=== PATIENT | male | born 1940 ===

== ENCOUNTER 2016-10-12 14:55 | Inpatient (IN) | payer MEDICARE, MEDICAID ==
[2016-10-12] MEDS ORDERED: Albuterol/Ipratropium NEB.SOL* Albuterol 2.5 MG/Ipratropium 0.5 MG 3 ML INH PRN (15:14)
--- NOTE | 2016-10-12 15:45 | RAD ---
Indication: Shortness of breath. COPD. Megacolon. Clinical concern for potential aspiration pneumonia. Comparison: March 17, 2012 abdomen radiographs and March 11, 2012 CT abdomen. Technique: Upright AP 1515 hours Report: Severe gas distention of the abdomen similar to the prior exam. Associated elevation of the hemidiaphragms and partial atelectasis of both lungs with crowding of the pulmonary markings. Grossly clear pleural spaces. Skinfold parallels the RIGHT peripheral thoracic wall. Negative for pneumothorax. Negative for cardiomegaly. Grossly unremarkable central pulmonary vasculature accounting for low lung volumes. IMPRESSION: Markedly low lung volumes with atelectasis secondary to elevation of the hemidiaphragms due to severe gas distention of the bowel. No compelling evidence for aspiration pneumonia. The gas distention of the bowel appears chronic or recurrent for this patient.
[2016-10-12] MEDS ORDERED: Zosyn per Pharmacy* NOTE FOLLOW UP SCH (16:00)
[2016-10-12] MEDS: NS 0.9% 1000 ML* 1,000 ML IV SCH (16:24)
[2016-10-12] MEDS: Enoxaparin(*) 40 MG/0.4 ML SYR SUBCUT SCH (16:52)
[2016-10-12] MEDS: CMC:Lactase Enzyme (NF) 3,000 UNIT TAB PO SCH (16:52)
[2016-10-12] MEDS: ZOSYN 3.375 GM Q8H per EXTENDED INFUSION IVPB SCH ×2 (20:15)
[2016-10-12] MEDS: Potassium Chlor TAB* 20 MEQ TAB.ER PO SCH (20:46)
[2016-10-12] MEDS: Divalproex ER TAB(*) 500 MG PO SCH (20:46)
[2016-10-12] MEDS: Metoclopramide TAB* 10 MG PO SCH (20:46)
[2016-10-12] MEDS: chlorproMAZINE TAB* 10 MG PO SCH (20:47)
[2016-10-12] MEDS: Polyethylene Glycol 3350* 17 GM PACKET PO SCH (20:50)
[2016-10-12] MEDS ORDERED: Lubiprostone 24 MCG CAP (NF) PO SCH (21:00)
--- NOTE | 2016-10-13 01:23 | HP ---
HISTORY AND PHYSICAL: DATE OF ADMISSION: 10/12/16 PRIMARY CARE PHYSICIAN: Sterling Hsieh PA-C. CHIEF COMPLAINT: Possible pneumonia with increasing shortness of breath according to staff from [facility] ([facility]). HISTORY OF PRESENT ILLNESS: Mr. Rico is a developmentally disabled 76- year- old gentleman, resident of [facility], with a history of severe mental disability , inability to communicate, who was noticed to be more short of breath and warm with increased redness of his face than normal. He was noted to have some "gurgling sounds" in his throat, noticed after dinner last night (10/11/16). The patient has had difficulty swallowing and has had been on a pureed diet with thickened fluids. The patient's temperature was measured at 100.2 degrees Fahrenheit after dinner and was gradually more short of breath by observation. The patient had no subjective complaints and is usually not communicative in that way. The patient came to emergency room the morning of 10/12/16 and was noticed to have a right-sided pneumonic infiltrates as per the ED provider. There were increased secretions noted and the patient was being admitted to the intensive care unit. The patient was transferred to [facility] and I accepted the case on the concern by the medical staff at [place] that he may make a turn for the worse and there would be limited ventilatory management capabilities over the weekend. The patient is indeed a full code. He is accompanied by his [facility] staff. There is a very clear medical history in the records and with the documentation carried by his team. He is being admitted to the ICU for initial management of aspiration pneumonia. PAST MEDICAL HISTORY: 1. Mental retardation. 2. Actinic keratosis. 3. Cholelithiasis. 4. Hyperlipidemia. 5. Epilepsy. 6. Prostatic hypertrophy. 7. Hypokalemia. 8. Hyponatremia. 9. Hypothyroidism. 10. Hypoxemia. 11. Impulse control disorder. 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 13. Periodontal disease. 14. [place] syndrome. 15. History of congestive heart failure. OUTPATIENT MEDICATIONS: 1. Tylenol 650 mg by mouth q.4 hours p.r.n. pain/fever. 2. Aloe vera apply locally as needed. 3. Amitiza 24 mcg per capsule - 1 capsule twice daily. 4. Chlorpromazine (Thorazine) 10 mg in the morning and 20 mg in the evening. 5. Divalproex (Depakote ER) 500 mg per mouth twice daily and an extra 250 mg in the morning for a total of 750 mg in the morning. 6. Doxycycline 200 mg by mouth twice daily. 7. Flomax 0.4 mg by mouth daily. 8. Risperdal 0.5 mg by mouth at bedtime. 9. Sertraline 200 mg by mouth daily. 10. Vitamin B12 1000 mcg by mouth daily. 11. Lactaid 9000 units by mouth 3 times daily with meals. 12. Levothyroxine 88 mcg by mouth daily. 13. Metronidazole gel apply as directed to affected areas. 14. MiraLAX 17 g twice daily. 15. Potassium 20 mEq by mouth 3 times daily. 16. Proscar 5 mg by mouth daily. 17. Reglan 10 mg by mouth 3 times daily. ALLERGIES: Only to environmental sources - no medication allergies noted. FAMILY HISTORY: Noncontributory, though reviewed. SOCIAL HISTORY: The patient is a nonsmoker, no alcohol ingested. Generally wheelchair bound, ambulates only short distances with pivots. REVIEW OF SYSTEMS: No review of systems was able to be completed secondary to the patient's chronic inability to cooperate with this questioning. PHYSICAL EXAMINATION GENERAL APPEARANCE: Elderly man, appears older than stated age, in no apparent distress. He is sitting upwards. He tracks me with his eyes, but is not meaningfully communicative or respond to questions. He does withdraw to pain, localize his pain. VITAL SIGNS: On admission, temperature 101.0 degrees Fahrenheit, pulse 97 and regular, respirations 25 and unlabored at this time, oxygen saturation 94% on Vapotherm 40%, blood pressure 150/80. HEENT: Oropharynx is clear. Mucous membranes are moist. No posterior pharyngeal erythema or exudate. NECK: Supple. No elevated JVD. CHEST: Clear breath sounds anteriorly, but some rhonchorous sounds on the right posteriorly. ABDOMEN: Massively distended and tympanic consistent with previous descriptions of his abdomen with noted megacolon/Alan syndrome. SKIN: Dry and intact. No rashes, lesions, or breakdown except in his sacral area with some stage 1 sacral changes, which the nurses have noted and are following. EXTREMITIES: Without clubbing, cyanosis, or edema. Yeung catheter to gravity is in place and draining clear yellow fluid. Peripheral IV is also in place. DIAGNOSTIC STUDIES/LAB DATA: Admission data is pending at this time, but I did review labs from the [place] [facility], which includes a white blood cell count of 12.07, hemoglobin 20.3 with hematocrit of 59, and platelets 178. Sodium 139, potassium 3.6 (low), chloride 102, bicarbonate 25, BUN 16, creatinine 0.9, lactic acid 2. INR is 1.6 (not on anticoagulation - auto- anticoagulated). Urine pending. EKG: Normal sinus rhythm. Chest x-ray by report showed a right upper lobe pneumonic infiltrate with elevated right and left hemidiaphragms with low lung volumes. ASSESSMENT AND PLAN: Mr. Rico is a 76-year-old gentleman with a presumably right-sided pneumonia with modestly elevated white blood cell count, hemoconcentrated with a hemoglobin of 20 with unclear baseline, but recheck pending as well as right-sided infiltrates altogether consistent with pneumonia , especially with his increased secretions and tachypnea. PLAN BY MEDICAL PROBLEM: Aspiration pneumonia with increased oral secretions and chronic difficulty swallowing. Pneumonitis can occur actual bacterial alveolar infiltration - supportive care is in place with supplemental oxygen and DuoNebs. We will collect the sputum culture. Empiric antibiotics with IV Zosyn for oral aerobic and anaerobic coverage. Blood cultures are being recollected here. Note, the patient received ceftriaxone, azithromycin in the emergency room at [place]. We will observe the patient closely for clinical stability before moving to the medical floor if he has a good night tonight. Seizure disorder - continue divalproex acid regimen. Behavioral disorder - continue sertraline as well as Risperdal as well as chlorpromazine regimen as per outpatient regimen. Benign prostatic hypertrophy - continue Amitiza, Flomax, and Proscar. Chronic hypokalemia - continue potassium supplementation 3 times daily as per outpatient regimen. Hypothyroidism - continue levothyroxine 88 mcg daily as per outpatient regimen. Check TSH. Full code. Thickened nectar thin liquids and pureed diet as per outpatient regimen with bedside swallow evaluation requested by nursing staff and Speech Therapy in the near future. TIME SPENT: Total time taken to admit Mr. Rico was 75 minutes, greater than half that time spent at the bedside going over the history and physical with the patient as well as his staff members from [facility]. [id number]/CPS #: [id number] TAMIKO
[2016-10-13] MEDS: ZOSYN 3.375 GM Q8H per EXTENDED INFUSION IVPB SCH ×6 (03:52→20:15)
[2016-10-13] MEDS: Levothyroxine TAB* 88 MCG TAB PO SCH (05:54)
[2016-10-13 06:01] LABS: Hematocrit 54 % (42-52); Hemoglobin 17.7 g/dl (14.0-18.0); Mean Corpuscular HGB Conc 33 g/dl (31-36); Mean Corpuscular Hemoglobin 30 pg (27-31); Mean Corpuscular Volume 91 fL (80-94); Mean Platelet Volume 9 um3 (7.4-10.4); Red Blood Count 5.96 10^6/ul (4.0-5.4); Red Cell Distribution Width 18 % (10.5-15); White Blood Count 10.7 10^3/ul (3.5-10.8)
[2016-10-13] MEDS: NS 0.9% 1000 ML* 1,000 ML IV SCH (06:02)
[2016-10-13 06:20] LABS: Albumin 3.1 g/dL (3.2-5.2); BUN/Creatinine Ratio 27.7 (8-20); Calcium 8.5 mg/dL (8.6-10.3); EGFR African American 154.4 (>60); EGFR Non-African American 120.1 (>60); Globulin 2.8 g/dL (2-4); Total Bilirubin 1.2 mg/dL (0.2-1.0); Total Protein 5.9 g/dL (6.4-8.9)
[2016-10-13 06:42] LABS: Potassium 3.1 mmol/L (3.5-5.0)
[2016-10-13 06:55] LABS: TSH (Thyroid Stimulating Horm) 2.6 mcIU/mL (0.34-5.60)
[2016-10-13] MEDS: CMC:Lactase Enzyme (NF) 3,000 UNIT TAB PO SCH ×3 (09:23→17:20)
[2016-10-13] MEDS: Polyethylene Glycol 3350* 17 GM PACKET PO SCH ×2 (09:23→21:07)
[2016-10-13] MEDS: Metoclopramide TAB* 10 MG PO SCH ×3 (09:23→21:07)
[2016-10-13] MEDS: Finasteride TAB* 5 MG PO SCH (09:23)
[2016-10-13] MEDS: Tamsulosin CAP* 0.4 MG PO SCH (09:23)
[2016-10-13] MEDS: Sertraline* 100 MG TAB PO SCH (09:23)
[2016-10-13] MEDS: Potassium Chlor TAB* 20 MEQ TAB.ER PO SCH ×3 (09:23→21:07)
[2016-10-13] MEDS: chlorproMAZINE TAB* 10 MG PO SCH ×2 (09:23→21:06)
[2016-10-13] MEDS: Divalproex ER TAB(*) 500 MG PO SCH ×2 (09:23→21:06)
[2016-10-13] MEDS: Divalproex ER TAB(*) 250 MG PO SCH (09:24)
--- NOTE | 2016-10-13 11:00 | PN ---
Progress Note - Progress Note Date of Service: 10/13/16 Note: CRITICAL CARE MEDICINE Date: 10/13/16 Time: 1010 SUBJECTIVE: Patient seen and examined. PHYSICAL EXAM: Vital Signs: Reviewed. Neurologic: awake HEENT: pupils equal. Sclera anicteric. Trachea midline. Supraclavicular wasting Cardiovascular: S1 S2 distant Respiratory: dec bs with rhonchi b/l, no rales. Abdomen: Soft, distended, tympanititc; nt. Extremities: Warm. frail Access: piv, leon LABS: Reviewed. IMAGING: Reviewed. MEDICATIONS: Reviewed. ASSESSMENT: 76 M with h/o MR from [facility] presenting with acute aspiration pneumonitits leading to acute hypoxic respiratory failure. PLAN: Neurologic: chronic aed regimen. Cardiovascular: perfusign. vol status fine. no need for further ivf. Respiratory: on HFO2 post pneumonitis. wean down and off today. needs to vedntilate in order to foster lung recover. chronic low volumes and likely scarring atelectasis. allow him to thive. metaneb if short on ventilation. Gastrointestinal: po diet as ordered. speech can f/u officially Renal/Metabolic: stable, replete K, f/u lytes. Infectious Disease: on zosyn. f/u finalization of cx. given his dynamics may recieve a 5 day total course. Hematology: stable. lovenox Endocrine: stable. Musculoskeletal: oob as able. Psych/Social: oupt rx. Supportive and preventative care as ordered. SUP: po VTE prophylaxis: lovenox Leon catheter given critical illness, monitoring needs for accurate assessment of HANS and KDIGO criteria for critically ill patients and to avoid potential harms of urinary retention, skin breakdown/ulcers. Disposition: ICU today sec to HFO2 needs Code Status: Full Critical Care Time: 30min Sheree Espinoza DO
[2016-10-13] MEDS: KCL 10 MEQ/50 ML IVPREMIX* 10 MEQ/50 ML BAG IV SCH ×3 (12:29→15:33)
[2016-10-13] MEDS: Enoxaparin(*) 40 MG/0.4 ML SYR SUBCUT SCH (17:20)
[2016-10-13] MEDS: Acetaminophen TAB* 325 MG PO PRN (17:20)
[2016-10-14] MEDS: ZOSYN 3.375 GM Q8H per EXTENDED INFUSION IVPB SCH ×2 (04:19)
[2016-10-14] MEDS: Levothyroxine TAB* 88 MCG TAB PO SCH (06:29)
[2016-10-14 06:38] LABS: Hematocrit 52 % (42-52); Hemoglobin 16.9 g/dl (14.0-18.0); Mean Corpuscular HGB Conc 33 g/dl (31-36); Mean Corpuscular Hemoglobin 29 pg (27-31); Mean Corpuscular Volume 90 fL (80-94); Mean Platelet Volume 9 um3 (7.4-10.4); Red Blood Count 5.76 10^6/ul (4.0-5.4); Red Cell Distribution Width 18 % (10.5-15); White Blood Count 9.7 10^3/ul (3.5-10.8)
[2016-10-14 06:47] LABS: BUN/Creatinine Ratio 30.2 (8-20); Calcium 8.4 mg/dL (8.6-10.3); EGFR African American 195.4 (>60); Magnesium 1.6 mg/dL (1.9-2.7); Phosphorus 2.5 mg/dL (2.5-5.0); Potassium 3.3 mmol/L (3.5-5.0)
[2016-10-14] MEDS: Tamsulosin CAP* 0.4 MG PO SCH (09:28)
[2016-10-14] MEDS: Potassium Chlor TAB* 20 MEQ TAB.ER PO SCH ×3 (09:28→19:47)
[2016-10-14] MEDS: Divalproex ER TAB(*) 500 MG PO SCH ×2 (09:28→19:47)
[2016-10-14] MEDS: Finasteride TAB* 5 MG PO SCH (09:28)
[2016-10-14] MEDS: Sertraline* 100 MG TAB PO SCH (09:29)
[2016-10-14] MEDS: Divalproex ER TAB(*) 250 MG PO SCH (09:29)
[2016-10-14] MEDS: CMC:Lactase Enzyme (NF) 3,000 UNIT TAB PO SCH ×3 (09:29→17:30)
[2016-10-14] MEDS: chlorproMAZINE TAB* 10 MG PO SCH ×2 (09:29→19:46)
[2016-10-14] MEDS: Metoclopramide TAB* 10 MG PO SCH ×3 (09:29→19:46)
[2016-10-14] MEDS: Polyethylene Glycol 3350* 17 GM PACKET PO SCH ×2 (09:29→19:44)
[2016-10-14] MEDS ORDERED: Magnesium Sulf 4 GM/100 ML IV* 4,000 MG/100 ML BAG IVPB ONE (10:20)
--- NOTE | 2016-10-14 11:10 | PN ---
Progress Note - Progress Note Date of Service: 10/14/16 Note: CRITICAL CARE MEDICINE Date: 10/14/16 Time: 935 SUBJECTIVE: Patient seen and examined. PHYSICAL EXAM: Vital Signs: Reviewed. Neurologic: awake HEENT: pupils equal. Sclera anicteric. Trachea midline. Supraclavicular wasting Cardiovascular: S1 S2 distant Respiratory: dec bs with rhonchi b/l, no rales. Abdomen: Soft, chronic distention, tympanititc; nt. Extremities: Warm. frail Access: piv, leon LABS: Reviewed. IMAGING: Reviewed. MEDICATIONS: Reviewed. ASSESSMENT: 76 M with h/o MR from [facility] presenting with acute aspiration pneumonitits leading to acute hypoxic respiratory failure; MR &chronic ol[place]' s syndrome. PLAN: doing well. wean off HFo2. dc abx; no needed for his aspiration replace lytes dc leon oob. po intake. social work f/u gabriel for dc plan Supportive and preventative care as ordered. SUP: po VTE prophylaxis: lovenox Disposition: to floor later today Code Status: Full Critical Care Time: 25min Sheree Espinoza DO
[2016-10-14] MEDS: KCL 10 MEQ/50 ML IVPREMIX* 10 MEQ/50 ML BAG IV SCH ×3 (11:48→13:39)
[2016-10-14] MEDS: Enoxaparin(*) 40 MG/0.4 ML SYR SUBCUT SCH (17:34)
[2016-10-15] MEDS: Levothyroxine TAB* 88 MCG TAB PO SCH (05:04)
[2016-10-15] MEDS: CMC:Lactase Enzyme (NF) 3,000 UNIT TAB PO SCH ×3 (08:08→17:24)
[2016-10-15] MEDS: Polyethylene Glycol 3350* 17 GM PACKET PO SCH ×2 (08:08→20:37)
[2016-10-15] MEDS: chlorproMAZINE TAB* 10 MG PO SCH ×2 (08:08→20:38)
[2016-10-15] MEDS: Sertraline* 100 MG TAB PO SCH (08:09)
[2016-10-15] MEDS: Tamsulosin CAP* 0.4 MG PO SCH (08:09)
[2016-10-15] MEDS: Divalproex ER TAB(*) 250 MG PO SCH (08:09)
[2016-10-15] MEDS: Metoclopramide TAB* 10 MG PO SCH ×3 (08:09→20:39)
[2016-10-15] MEDS: Divalproex ER TAB(*) 500 MG PO SCH ×2 (08:09→20:39)
[2016-10-15] MEDS: Potassium Chlor TAB* 20 MEQ TAB.ER PO SCH ×3 (08:09→20:39)
[2016-10-15] MEDS: Finasteride TAB* 5 MG PO SCH (08:09)
--- NOTE | 2016-10-15 13:02 | PN ---
Subjective Date of Service: 10/15/16 Interval History: Patient seen this afternoon with nursing at bedside. Seems comfortable, he is non-verbal. Seems to be tolerating PO alright. HEAD OF ETHICS AND COMPLIANCE brandi done today. Patient on nocturnal O2 only at [facility] [place], currently on 4L. Family History: Unchanged from Admission Social History: Unchanged from Admission Past Medical History: Unchanged from Admission Objective Active Medications: Acetaminophen (Tylenol Tab*) 650 mg PO Q4H PRN Albuterol/Ipratropium (Duoneb (Albuterol 2.5 Mg/Ipratropium 0.5 Mg)) 1 neb INH Q4H PRN Chlorpromazine HCl (Thorazine Tab*) 10 mg PO QAM [facility] Chlorpromazine HCl (Thorazine Tab*) 20 mg PO BEDTIME [facility] Divalproex Sodium (Depakote Er Tab(*)) 250 mg PO DAILY [facility] Divalproex Sodium (Depakote Er Tab(*)) 500 mg PO BID [facility] Enoxaparin Sodium (Lovenox(*)) 40 mg SUBCUT Q24H [facility] Finasteride (Proscar Tab*) 5 mg PO DAILY [facility] Lactase (Lactaid Fast Act (Nf)) 9,000 unit PO TID WITH MEALS [facility] Levothyroxine Sodium (Synthroid Tab*) 88 mcg PO 0600 [facility] Lubiprostone (Amitiza (Nf)) 24 mcg PO BID [facility] Metoclopramide HCl (Reglan Tab*) 10 mg PO TID [facility] Ondansetron HCl (Zofran Inj*) 4 mg IV Q4H PRN Polyethylene Glycol/Electrolytes (Miralax*) 17 gm PO BID [facility] Potassium Chloride (Klor Con Er Tab*) 20 meq PO TID [facility] Risperidone (Risperdal) 0.5 mg PO BEDTIME [facility] Sertraline HCl (Zoloft*) 200 mg PO DAILY [facility] Tamsulosin HCl (Flomax Cap*) 0.4 mg PO DAILY [facility] Vital Signs 10/14/16 10/14/16 10/14/16 13:15 13:30 13:45 Temperature Pulse Rate 92 99 94 Respiratory 15 22 20 Rate Blood Pressure (mmHg) O2 Sat by Pulse 94 95 97 Oximetry 10/15/16 10/15/16 08:00 11:49 Temperature 97.3 F Pulse Rate 65 Respiratory 20 16 Rate Blood Pressure 122/68 (mmHg) O2 Sat by Pulse 98 Oximetry Oxygen Devices in Use Now: Nasal Cannula - 4L Appearance: Elderly, M, sitting in chair in NAD Eyes: No Scleral Icterus Ears/Nose/Mouth/Throat: Mucous Membranes Moist Neck: NL Appearance and Movements; NL JVP Respiratory: Symmetrical Chest Expansion and Respiratory Effort, - - mild scattered ronchi Cardiovascular: NL Sounds; No Murmurs; No JVD, RRR Abdominal: - - Soft, distended, tympanitic, non-tender Lymphatic: No Cervical Adenopathy Extremities: No Edema Skin: No Rash or Ulcers Neurological: - - Alert, non-verbal Result Diagrams: 10/14/16 05:51 10/14/16 05:51 Microbiology and Other Data: Microbiology 10/12/16 17:05 Aerobic Blood Culture - Preliminary Blood Venous No Growth Day 2 Anaerobic Blood Culture - Preliminary No Growth Day 2 Blood Culture - Final 10/12/16 16:35 Aerobic Blood Culture - Preliminary Blood Venous No Growth Day 2 Anaerobic Blood Culture - Preliminary No Growth Day 2 Blood Culture - Final 10/12/16 15:03 Nasal Screen MRSA (PCR)(SANGEETA) - Final Nasal Mrsa Negative Assess/Plan/Problems-Billing Assessment: Acute hypoxic respiratory failure 2/2 aspiration pneumonitis in a 76 yo M with hx of developmental delay, chronic abdominal distension/[place]'s, BPH, HLD, seizure disorder - Patient Problems (1) Acute respiratory failure with hypoxia Current Visit: Yes Comment: 2/2 aspiration pneumonitis. ABx stopped. Continue supportive care, supplemental O2. Wean as able, currently on 4L. HEAD OF ETHICS AND COMPLIANCE eval today. (2) BPH (benign prostatic hyperplasia) Current Visit: Yes Comment: Continue flomax and proscar (3) Seizure disorder Current Visit: Yes Comment: Continue depakote (4) DVT prophylaxis Current Visit: Yes Comment: Lovenox Status and Disposition: Probable discharge in 24-48 hours
[2016-10-15] MEDS: Enoxaparin(*) 40 MG/0.4 ML SYR SUBCUT SCH (15:16)
[2016-10-15] MEDS: Acetaminophen TAB* 325 MG PO PRN (20:38)
[2016-10-16] MEDS: Ondansetron INJ* 2 MG/ML VIAL IV PRN (05:12)
[2016-10-16] MEDS: Acetaminophen TAB* 325 MG PO PRN (05:12)
[2016-10-16] MEDS: Levothyroxine TAB* 88 MCG TAB PO SCH (05:12)
[2016-10-16 06:02] LABS: BUN/Creatinine Ratio 19.1 (8-20); Calcium 8.6 mg/dL (8.6-10.3); EGFR African American 224.5 (>60); EGFR Non-African American 174.6 (>60); Magnesium 1.6 mg/dL (1.9-2.7); Potassium 3.7 mmol/L (3.5-5.0)
[2016-10-16] MEDS: Finasteride TAB* 5 MG PO SCH (08:52)
[2016-10-16] MEDS: Sertraline* 100 MG TAB PO SCH (08:52)
[2016-10-16] MEDS: Metoclopramide TAB* 10 MG PO SCH ×3 (08:52→22:12)
[2016-10-16] MEDS: Potassium Chlor TAB* 20 MEQ TAB.ER PO SCH ×3 (08:52→22:12)
[2016-10-16] MEDS: chlorproMAZINE TAB* 10 MG PO SCH ×2 (08:52→22:11)
[2016-10-16] MEDS: CMC:Lactase Enzyme (NF) 3,000 UNIT TAB PO SCH ×3 (08:52→17:08)
[2016-10-16] MEDS: Polyethylene Glycol 3350* 17 GM PACKET PO SCH ×2 (08:53→22:11)
[2016-10-16] MEDS: Tamsulosin CAP* 0.4 MG PO SCH (08:53)
[2016-10-16] MEDS: Divalproex ER TAB(*) 250 MG PO SCH (08:53)
[2016-10-16] MEDS: Divalproex ER TAB(*) 500 MG PO SCH ×2 (08:53→22:11)
[2016-10-16] MEDS: Enoxaparin(*) 40 MG/0.4 ML SYR SUBCUT SCH (17:08)
--- NOTE | 2016-10-16 19:01 | PN ---
Subjective Date of Service: 10/16/16 Interval History: . Examined patient at bedside; Discussed case with Dr. Nieves ; Reviewed previous notes and radiology results; Patient seems comfortable; he is non-verbal. Seems to be tolerating PO alright. Patient on nocturnal O2 only at [facility], currently on 4L. . Family History: Unchanged from Admission Social History: Unchanged from Admission Past Medical History: Unchanged from Admission Objective Active Medications: . Acetaminophen (Tylenol Tab*) 650 mg PO Q4H PRN PRN Reason: FEVER/PAIN Last Admin: 10/16/16 05:12 Dose: 650 mg Albuterol/Ipratropium (Duoneb (Albuterol 2.5 Mg/Ipratropium 0.5 Mg)) 1 neb INH Q4H PRN PRN Reason: SOB/WHEEZING Chlorpromazine HCl (Thorazine Tab*) 10 mg PO QAM [facility] Last Admin: 10/16/16 08:52 Dose: 10 mg Chlorpromazine HCl (Thorazine Tab*) 20 mg PO BEDTIME [facility] Last Admin: 10/15/16 20:38 Dose: 20 mg Divalproex Sodium (Depakote Er Tab(*)) 250 mg PO DAILY [facility] Last Admin: 10/16/16 08:53 Dose: 250 mg Divalproex Sodium (Depakote Er Tab(*)) 500 mg PO BID [facility] Last Admin: 10/16/16 08:53 Dose: 500 mg Enoxaparin Sodium (Lovenox(*)) 40 mg SUBCUT Q24H [facility] Last Admin: 10/16/16 17:08 Dose: 40 mg Finasteride (Proscar Tab*) 5 mg PO DAILY [facility] Last Admin: 10/16/16 08:52 Dose: 5 mg Lactase (Lactaid Fast Act (Nf)) 9,000 unit PO TID WITH MEALS [facility] PRN Reason: Protocol Last Admin: 10/16/16 17:08 Dose: 9,000 unit Levothyroxine Sodium (Synthroid Tab*) 88 mcg PO 0600 [facility] Last Admin: 10/16/16 05:12 Dose: 88 mcg Lubiprostone (Amitiza (Nf)) 24 mcg PO BID [facility] Last Admin: 10/16/16 08:52 Dose: 24 mcg Metoclopramide HCl (Reglan Tab*) 10 mg PO TID [facility] Last Admin: 10/16/16 12:54 Dose: 10 mg Ondansetron HCl (Zofran Inj*) 4 mg IV Q4H PRN PRN Reason: NAUSEA/VOMITING Last Admin: 10/16/16 05:12 Dose: 4 mg Polyethylene Glycol/Electrolytes (Miralax*) 17 gm PO BID [facility] Last Admin: 10/16/16 08:53 Dose: Not Given Potassium Chloride (Klor Con Er Tab*) 20 meq PO TID [facility] Last Admin: 10/16/16 12:55 Dose: 20 meq Risperidone (Risperdal) 0.5 mg PO BEDTIME [facility] Last Admin: 10/15/16 20:38 Dose: 0.5 mg Sertraline HCl (Zoloft*) 200 mg PO DAILY [facility] Last Admin: 10/16/16 08:52 Dose: 200 mg Tamsulosin HCl (Flomax Cap*) 0.4 mg PO DAILY [facility] Last Admin: 10/16/16 08:53 Dose: 0.4 mg . Vital Signs 10/15/16 10/15/16 10/15/16 19:36 20:00 23:40 Temperature 98.1 F 97.5 F Pulse Rate 84 63 Respiratory 16 16 16 Rate Blood Pressure 173/101 130/75 (mmHg) O2 Sat by Pulse 96 97 Oximetry 10/16/16 10/16/16 10/16/16 00:47 04:27 07:23 Temperature 97.3 F Pulse Rate 87 57 60 Respiratory 20 16 18 Rate Blood Pressure 134/68 156/81 (mmHg) O2 Sat by Pulse 93 98 94 Oximetry Oxygen Devices in Use Now: Nasal Cannula - 4L Appearance: NAD; non-verbal Ears/Nose/Mouth/Throat: Clear Oropharnyx Neck: NL Appearance and Movements; NL JVP Respiratory: Symmetrical Chest Expansion and Respiratory Effort Cardiovascular: NL Sounds; No Murmurs; No JVD Abdominal: - - alphonso colon Lymphatic: No Cervical Adenopathy Extremities: No Edema Skin: No Rash or Ulcers Neurological: Alert and Oriented x 3 Lines/Tubes/Other Access: Clean, Dry and Intact Peripheral IV Nutrition: Taking PO's Result Diagrams: 10/14/16 05:51 10/16/16 05:26 Microbiology and Other Data: Microbiology 10/12/16 17:05 Aerobic Blood Culture - Preliminary Blood Venous No Growth Day 2 Anaerobic Blood Culture - Preliminary No Growth Day 2 Blood Culture - Final 10/12/16 16:35 Aerobic Blood Culture - Preliminary Blood Venous No Growth Day 2 Anaerobic Blood Culture - Preliminary No Growth Day 2 Blood Culture - Final 10/12/16 15:03 Nasal Screen MRSA (PCR)(SANGEETA) - Final Nasal Mrsa Negative Assess/Plan/Problems-Billing Assessment: Acute hypoxic respiratory failure 2/2 aspiration pneumonitis in a 76 yo M with hx of developmental delay, chronic abdominal distension/[place]'s, BPH, HLD, seizure disorder - Patient Problems (1) Acute respiratory failure with hypoxia Current Visit: Yes Status: Acute Priority: High Code(s): J96.01 - ACUTE RESPIRATORY FAILURE WITH HYPOXIA Comment: 2/2 aspiration pneumonitis. ABx stopped. Continue supportive care, supplemental O2. Wean as able, currently on 4L. (2) BPH (benign prostatic hyperplasia) Current Visit: Yes Status: Acute Priority: High Code(s): N40.0 - BENIGN PROSTATIC HYPERPLASIA WITHOUT LOWER URINRY TRACT SYMP Comment: - Continue flomax and proscar (3) DVT prophylaxis Current Visit: Yes Status: Acute Priority: High Code(s): UHW9522 - Comment: Lovenox (4) Seizure disorder Current Visit: Yes Status: Acute Priority: High Code(s): G40.909 - EPILEPSY, UNSP, NOT INTRACTABLE, WITHOUT STATUS EPILEPTICUS Comment: Continue depakote Status and Disposition: .
[2016-10-17] MEDS: Levothyroxine TAB* 88 MCG TAB PO SCH (05:33)
[2016-10-17] MEDS: Acetaminophen TAB* 325 MG PO PRN (05:33)
[2016-10-17] MEDS: Ondansetron INJ* 2 MG/ML VIAL IV PRN (05:33)
[2016-10-17] MEDS: CMC:Lactase Enzyme (NF) 3,000 UNIT TAB PO SCH ×2 (08:50→12:19)
[2016-10-17] MEDS: Sertraline* 100 MG TAB PO SCH (08:50)
[2016-10-17] MEDS: Tamsulosin CAP* 0.4 MG PO SCH (08:50)
[2016-10-17] MEDS: Divalproex ER TAB(*) 500 MG PO SCH (08:50)
[2016-10-17] MEDS: chlorproMAZINE TAB* 10 MG PO SCH (08:50)
[2016-10-17] MEDS: Divalproex ER TAB(*) 250 MG PO SCH (08:50)
[2016-10-17] MEDS: Potassium Chlor TAB* 20 MEQ TAB.ER PO SCH (08:50)
[2016-10-17] MEDS: Metoclopramide TAB* 10 MG PO SCH (08:50)
[2016-10-17] MEDS: Finasteride TAB* 5 MG PO SCH (08:50)
[2016-10-17] MEDS: Polyethylene Glycol 3350* 17 GM PACKET PO SCH (08:51)
[2016-10-17 12:04] VITALS: BP 131/98
== END 2016-10-17 14:00 | DRG 177 ==
LOC: ICU 14:59 → MED 10-14 11:44
PROVIDERS: ADMIT Internal Medicine; ATTEND Internal Medicine
DX: J69.0 Pneumonitis due to inhalation of food and vomit (principal); J96.01 Acute respiratory failure with hypoxia; K59.39 Other megacolon; F79 Unspecified intellectual disabilities; E78.5 Hyperlipidemia, unspecified; G40.909 Epilepsy, unspecified, not intractable, without status epilepticus; N40.0 Benign prostatic hyperplasia without lower urinary tract symptoms; E03.9 Hypothyroidism, unspecified; F63.9 Impulse disorder, unspecified; I50.9 Heart failure, unspecified; E87.6 Hypokalemia; F91.9 Conduct disorder, unspecified; Z99.81 Dependence on supplemental oxygen
CPT/HCPCS: 36415; 71010; 80048; 80053; 83735; 84100; 84443; 85025; 85027; 87040; 87641; 94760; A9270-GY; J1650; J2405; J2543; J3480

== ENCOUNTER 2016-12-07 16:52 | Inpatient (IN) | payer MEDICARE, MEDICAID ==
[2016-12-07] MEDS ORDERED: Acetaminophen ADULT LIQ* 650 MG/20.3 ML UDC PO PRN (19:20)
[2016-12-07] MEDS ORDERED: Sodium Phosphate ADULT ENEMA* 118 ml bottle PR PRN (19:35)
[2016-12-07] MEDS ORDERED: Magnesium Hydroxide LIQ* 30 ML UDC PO PRN (19:35)
[2016-12-07] MEDS ORDERED: chlorproMAZINE TAB* 10 MG PO SCH (21:00)
[2016-12-07] MEDS ORDERED: Divalproex ER TAB(*) 500 MG PO SCH ×2 (21:00→21:21)
[2016-12-07] MEDS: Potassium Chlor TAB* 20 MEQ TAB.ER PO SCH (22:43)
[2016-12-07] MEDS: Polyethylene Glycol 3350* 17 GM PACKET PO SCH (22:43)
[2016-12-07] MEDS: Metoclopramide TAB* 10 MG PO SCH (22:53)
[2016-12-07] MEDS: Lubiprostone 24 MCG CAP (NF) PO SCH (22:53)
[2016-12-08] MEDS ORDERED: Divalproex ER TAB(*) 500 MG PO SCH
--- NOTE | 2016-12-08 00:04 | HP ---
CC: EMMA Key * [facility] MEDICINE HISTORY AND PHYSICAL: DATE OF ADMISSION: 12/07/16 PRIMARY CARE PHYSICIAN: EMMA Key ATTENDING PHYSICIAN: Arabella Hunter MD * (dictation provided by Meghann Castle NP) CHIEF COMPLAINT: Weakness and low-grade fever. HISTORY OF PRESENT ILLNESS: Mr. Rico is a 76-year-old male who is unable to provide any information today due to his severe mental disability and inability to communicate. Information was obtained from the written record from [facility] and from the documentation provided from the [facility] Facility. Per the report, Mr. Rico is normally able to get up with 1 assist; however, over the past 24 hours or so, he has required 2 assists to get out of the bed. He has been noted to be more lethargic. He has had a low-grade temperature of approximately 99. There was concern that based on the patient's history of aspiration pneumonia that perhaps he was in the early stages of that and therefore they transferred him to [facility] ER for evaluation. In [facility], the patient was afebrile. He was not hypoxic. He had an abdominal x-ray that showed concern for a possible perforation though the patient had no pain and was not tachycardic. 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 Mr. Rico was transitioned to our hospital. I note that his labs at [place] showed no leucocytosis. His BUN and creatinine are normal. He has mild anemia. PAST MEDICAL HISTORY: 1. 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 2. Obsessive compulsive disorder. 3. Impulse control disorder. 4. History of aspiration pneumonia. 5. Hypothyroidism. 6. History of seizure disorder. 7. History of CHF. 8. History of actinic keratosis. MEDICATIONS: Please note that the medication list should be reviewed again with staff from [facility] to determine exact time of administration of medications: 1. Doxycycline 20 mg p.o. b.i.d. 2. Ketoconazole 2% one application topical q.3 days. 3. Lactic acid 12% cream 1 application topical 4 times a day p.r.n. 4. Metronidazole topical 1% gel topical daily. 5. Mineral oil 10 mL orally daily. 6. Divalproex ER 500 mg p.o. q pm. 7. Divalproex ER 250 mg p.o. q am. 8. Finasteride 5 mg p.o. daily. 9. Lactase 9000 units p.o. t.i.d. 10. Levothyroxine 88 mcg p.o. daily. 11. Amitiza 24 mcg p.o. b.i.d. 12. Magnesium hydroxide 30 mL p.o. daily p.r.n. 13. Reglan 10 mg p.o. t.i.d. 14. MiraLAX 1 packet p.o. b.i.d. 15. Potassium chloride 20 mEq p.o. t.i.d. 16. Sertraline 200 mg p.o. daily. 17. Fleet Enema 1 enema ME q.4 hours p.r.n. 18. Tamsulosin 0.4 mg p.o. daily. 19. Chlorpromazine 10 mg p.o. q am. 20. Chlorpormazine 20mg po q pm. ALLERGIES: No known drug allergies. FAMILY HISTORY: Unobtainable. SOCIAL HISTORY: Unobtainable. REVIEW OF SYSTEMS: Unobtainable. PHYSICAL EXAMINATION GENERAL: Mr. Rico is lying in the bed. He is in no acute distress. VITAL SIGNS: Temperature 97.4, pulse rate 73, respiratory rate 16, O2 saturation 97% on room air, blood pressure 131/77. LUNGS: Have some minimal rhonchi, more notable on the right than left. HEART: S1, S2. No murmur, rub, or gallop and regular. ABDOMEN: Severely distended and is soft. The patient does not have any tenderness when palpated. Bowel sounds are active. EXTREMITIES: No cyanosis or edema. NEURO: He is alert. He is making emotion of moving his hand to his lips. He is cooperative with my examination. He is not verbal. He seemed to move his extremities weakly. There is no focal asymmetry. SKIN: Intact. LABORATORY DATA: Again, the patient has no leukocytosis. His BUN and creatinine are normal. His electrolytes are normal. He has a mild anemia. Please see the records from [facility] for full list of lab values. ASSESSMENT: Mr. Rico is a 76-year-old male with a past medical history of mental disability who resides in [facility] Facility and is unable to provide information today. Information obtained from the staff is that the patient had a low-grade fever and was weak and therefore, they transitioned him to [facility] where there was concern for possible pneumonia and a bowel perforation and therefore he was transitioned to [facility]. Our recommendation is for admission as I expect his length of stay to be greater than 2 days for the followin. Low-grade fever and weakness: There was concern that perhaps the patient had aspiration pneumonia. At this point, I suspect it is possible that the patient does have some scattered rhonchi in his lungs and he is acting abnormal. He has no clear infiltrate on chest x-ray. Plan for now is to continue with Levaquin. He will continue on his normal pureed diet with nectar thickened liquids. If there is any overt evidence of aspiration, a speech eval can be obtained. 2. Questionable bowel perforation. The patient has a longstanding known Severy syndrome and megacolon. His belly is soft. He does not appear toxic at all, with no tachycardia or fever or hypotension. I think these x-ray findings are not supported by clinical findings. We will continue to monitor closely. 3. History of seizure disorder. Continue home medications. 4. Hypothyroidism. Continue home medications. 5. Alan syndrome. Plan to continue all bowel motility agents. 6. DVT prophylaxis with SCDs. 7. Code status. He is full code. TIME SPENT: Approximately 60 minutes were spent on the admission of this patient, more than half the time spent with the patient at the bedside reviewing the events leading up to this hospitalization, performing the physical examination, and reviewing the plan of care. MEGHANN CASTLE, SERGIO [id number]/[facility] #: [id number] TAMIKO
[2016-12-08] MEDS: Divalproex Sprinkle CAP* 125 MG PO SCH ×3 (02:44→20:02)
[2016-12-08] MEDS: Levothyroxine TAB* 88 MCG TAB PO SCH (05:50)
[2016-12-08 06:19] LABS: Hematocrit 52 % (42-52); Hemoglobin 17.2 g/dl (14.0-18.0); Mean Corpuscular HGB Conc 33 g/dl (31-36); Mean Corpuscular Hemoglobin 30 pg (27-31); Mean Corpuscular Volume 92 fL (80-94); Mean Platelet Volume 9 um3 (7.4-10.4); Red Blood Count 5.69 10^6/ul (4.0-5.4); Red Cell Distribution Width 20 % (10.5-15); White Blood Count 9.7 10^3/ul (3.5-10.8)
[2016-12-08 06:34] LABS: BUN/Creatinine Ratio 18.2 (8-20); Calcium 9.1 mg/dL (8.6-10.3); EGFR African American 187.3 (>60); EGFR Non-African American 145.6 (>60)
[2016-12-08 07:31] LABS: C Reactive Protein 69.38 mg/L (< 5.00)
[2016-12-08] MEDS: CMCS: Lactase Enzyme (NF) 3,000 UNIT TAB PO SCH ×3 (08:49→18:36)
[2016-12-08] MEDS: chlorproMAZINE TAB* 10 MG PO SCH ×2 (08:49→20:03)
[2016-12-08] MEDS: Sertraline* 100 MG TAB PO SCH (08:49)
[2016-12-08] MEDS: Polyethylene Glycol 3350* 17 GM PACKET PO SCH ×2 (08:50→20:10)
[2016-12-08] MEDS: Metoclopramide TAB* 10 MG PO SCH ×3 (08:50→20:02)
[2016-12-08] MEDS: Finasteride TAB* 5 MG PO SCH (08:50)
[2016-12-08] MEDS: Potassium Chlor TAB* 20 MEQ TAB.ER PO SCH ×3 (08:50→20:04)
[2016-12-08] MEDS: Tamsulosin CAP* 0.4 MG PO SCH (08:50)
--- NOTE | 2016-12-08 08:51 | RAD ---
INDICATION: Aspiration pneumonia COMPARISON: Chest x-ray October 12, 2016 TECHNIQUE: PA and lateral views of the chest were obtained. FINDINGS: Similar the prior chest x-ray the lung volumes are reduced. There is density overlying the bilateral central lungs symmetrically with crowding of the pulmonary vasculature and mild engorgement. There is density overlying the bilateral diaphragm which are elevated due to a large amount of gas in the colon. The colon is dilated to at least 9.3 cm in diameter below the right hemidiaphragm. IMPRESSION: 1. THERE IS POTENTIAL SIGNS OF VASCULAR CONGESTION OVERLYING THE BILATERAL LUNGS. THIS APPEARANCE COULD SIMPLY BE THE CONSEQUENCE OF LOW LUNG VOLUMES DUE TO COMPRESSION OF THE DIAPHRAGM SECONDARY TO GROSSLY DILATED GAS-FILLED LOOPS OF BOWEL. 2. THE COLON IS DILATED TO AT LEAST 9.3 CM IN DIAMETER. INCOMPLETELY VISUALIZED GAS BELOW THE DIAPHRAGM IS MOST LIKELY WITHIN THE COLONIC LUMEN BUT FREE AIR IN THE PERITONEAL CAVITY IS NOT EXCLUDED ON THIS IMAGING ALONE.
[2016-12-08] MEDS: Lubiprostone 24 MCG CAP (NF) PO SCH (08:57)
[2016-12-08] MEDS ORDERED: Divalproex DR TAB(*) 250 MG PO SCH (09:00)
[2016-12-08] MEDS ORDERED: Levofloxacin 750 MG IVPREMIX(* 750 MG/150 ML BAG IVPB SCH (09:00)
[2016-12-08] MEDS ORDERED: Zosyn per Pharmacy* NOTE FOLLOW UP SCH (09:00)
[2016-12-08] MEDS ORDERED: [UNRECOGNIZED DRUG - OTHER] SCH (11:30)
--- NOTE | 2016-12-08 11:38 | PN ---
Subjective Date of Service: 12/08/16 Interval History: This is a 76 yo gentleman with severe MR transferred from [facility] yesterday with c/o weakness and concern for possible aspiration PNA. He has had no cough this am. He was 1 assist to the commode this morning. No fever overnight. Objective Active Medications: Acetaminophen (Tylenol Adult Liq*) 650 mg PO Q6H PRN PRN Reason: pain/fever Chlorpromazine HCl (Thorazine Tab*) 10 mg PO QAM [facility] Last Admin: 12/08/16 08:49 Dose: 10 mg Chlorpromazine HCl (Thorazine Tab*) 20 mg PO BEDTIME [facility] Divalproex Sodium (Depakote Sprinkle Cap*) 250 mg PO QAM [facility] Last Admin: 12/08/16 08:49 Dose: 250 mg Divalproex Sodium (Depakote Sprinkle Cap*) 500 mg PO 2100 [facility] Last Admin: 12/08/16 02:44 Dose: 500 mg Finasteride (Proscar Tab*) 5 mg PO DAILY [facility] Last Admin: 12/08/16 08:50 Dose: 5 mg Piperacillin Sod/Tazobactam (Sod 3.375 gm/ Sodium Chloride) 100 mls @ 25 mls/ hr IVPB Q8H [facility] Lactase (Lactaid Fast Act (Nf)) 9,000 unit PO TID WITH MEALS [facility] Last Admin: 12/08/16 08:49 Dose: 9,000 unit Levothyroxine Sodium (Synthroid Tab*) 88 mcg PO DAILY@0600 [facility] Last Admin: 12/08/16 05:50 Dose: 88 mcg Lubiprostone (Amitiza (Nf)) 24 mcg PO BID [facility] Last Admin: 12/08/16 08:57 Dose: Not Given Magnesium Hydroxide (Milk Of Magnesia Liq*) 30 ml PO DAILY PRN PRN Reason: CONSTIPATION Metoclopramide HCl (Reglan Tab*) 10 mg PO TID [facility] Last Admin: 12/08/16 08:50 Dose: 10 mg Mineral Oil (Mineral Oil Sterile*) 5 ml .SEE ORDER DAILY [facility] Pharmacy Consult (Zosyn Per Pharmacy*) 1 note FOLLOW UP .ZOSYN PER PHARMACY [facility] Polyethylene Glycol/Electrolytes (Miralax*) 17 gm PO BID [facility] Last Admin: 12/08/16 08:50 Dose: 17 gm Potassium Chloride (Klor Con Er Tab*) 20 meq PO TID [facility] Last Admin: 12/08/16 08:50 Dose: 20 meq Risperidone (Risperdal*) 0.5 mg PO BEDTIME [facility] Sertraline HCl (Zoloft*) 200 mg PO DAILY [facility] Last Admin: 12/08/16 08:49 Dose: 200 mg Sodium Biphosphate/Sodium Phosphate (Fleet Enema*) 1 bottle ND Q4D PRN PRN Reason: CONSTIPATION Tamsulosin HCl (Flomax Cap*) 0.4 mg PO DAILY [facility] Last Admin: 12/08/16 08:50 Dose: 0.4 mg Vital Signs: Temp Pulse Resp BP Pulse Ox 97.7 F 66 20 137/81 95 12/08/16 03:48 12/08/16 07:28 12/08/16 08:00 12/08/16 07:28 12/08/16 10:26 Oxygen Devices in Use Now: None Appearance: Sleeping upon entering the room, but easily awakens, in NAD. Non- verbal Respiratory: Symmetrical Chest Expansion and Respiratory Effort, Clear to Auscultation Cardiovascular: NL Sounds; No Murmurs; No JVD, RRR Abdominal: - - severe distention of the abd which is firm, but does not appear to cause tenderness Extremities: No Edema Skin: No Rash or Ulcers Neurological: - - alert, non-verbal Result Diagrams: 12/08/16 05:27 12/08/16 05:27 Diagnostic Imaging: CXR - difficult to interpret due to patient positioning and severe abd distention. Poor lung volumes. Compared to CXR from yesterday at [place] there may be a subtle infiltrate in RUL Assess/Plan/Problems-Billing Assessment: This is a 76 yo male with severe MR and Alan's syndrome along with OCD, hypothyroidism, CHF and sz d/o who was transferred from [facility] with concern for increasing weakness and possible asp PNA - Patient Problems (1) Weakness Comment: Reports of requiring 2 person assist at home over usual 1 person Concern for possible asp PNA No cough, hypoxia, leukocytosis or fever but moderately elevated CRP and procalcitonin Appears near baseline today Perhaps subtle infiltrate on CXR, but difficult to interpret UA pending Empirically treating with Zosyn (2) MR (mental retardation), severe Comment: Non verbal at baseline (3) [place]'s syndrome Comment: Severe colonic distention No change from usual baseline (4) Hypothyroid Comment: Last TSH from 6 weeks ago WNL Cont current dose of levothyroxine (5) Chronic heart failure Comment: No exacerbation No prior echo to determine type of HF (6) Seizure disorder Comment: Stable Continue depakote (7) Full code status (8) DVT prophylaxis Comment: SQ Lovenox Status and Disposition: Inpatient. Anticipate likely dc tomorrow
[2016-12-08 12:28] LABS: Urine Bilirubin Negative (Negative); Urine Glucose Negative (Negative); Urine Nitrite Negative (Negative)
[2016-12-08] MEDS: ZOSYN 3.375 GM Q8H per EXTENDED INFUSION IVPB SCH ×4 (12:56→19:59)
[2016-12-08] MEDS: Mineral Oil, LAXITIVE* 30 ML UDC PO SCH (12:57)
[2016-12-08] MEDS: Enoxaparin(*) 40 MG/0.4 ML SYR SUBCUT SCH (12:57)
[2016-12-08] MEDS: risperiDONE TAB* 1 MG PO SCH (20:02)
[2016-12-08] MEDS: LUBIPROSTONE 24 MCG PO SCH (20:04)
[2016-12-08] MEDS ORDERED: chlorproMAZINE TAB* 10 MG PO SCH (21:00)
[2016-12-09] MEDS: ZOSYN 3.375 GM Q8H per EXTENDED INFUSION IVPB SCH ×6 (04:58→22:06)
[2016-12-09] MEDS: Levothyroxine TAB* 88 MCG TAB PO SCH (05:25)
[2016-12-09] MEDS: LACTASE ENZYME 9000 UNIT PO SCH ×3 (09:32→17:26)
[2016-12-09] MEDS: Metoclopramide TAB* 10 MG PO SCH ×3 (09:32→21:28)
[2016-12-09] MEDS: chlorproMAZINE TAB* 10 MG PO SCH ×2 (09:32→21:28)
[2016-12-09] MEDS: Divalproex Sprinkle CAP* 125 MG PO SCH ×2 (09:32→21:28)
[2016-12-09] MEDS: Sertraline* 100 MG TAB PO SCH (09:32)
[2016-12-09] MEDS: Mineral Oil, LAXITIVE* 30 ML UDC PO SCH (09:32)
[2016-12-09] MEDS: LUBIPROSTONE 24 MCG PO SCH ×2 (09:33→21:28)
[2016-12-09] MEDS: Finasteride TAB* 5 MG PO SCH (09:33)
[2016-12-09] MEDS: Potassium Chlor TAB* 20 MEQ TAB.ER PO SCH ×3 (09:33→21:27)
[2016-12-09] MEDS: Polyethylene Glycol 3350* 17 GM PACKET PO SCH ×2 (09:33→21:26)
[2016-12-09] MEDS: Tamsulosin CAP* 0.4 MG PO SCH (09:33)
[2016-12-09 11:39] LABS: Hematocrit 55 % (42-52); Hemoglobin 18.2 g/dl (14.0-18.0); Mean Corpuscular HGB Conc 33 g/dl (31-36); Mean Corpuscular Hemoglobin 30 pg (27-31); Mean Corpuscular Volume 91 fL (80-94); Mean Platelet Volume 9 um3 (7.4-10.4); Red Blood Count 6.02 10^6/ul (4.0-5.4); Red Cell Distribution Width 20 % (10.5-15); White Blood Count 9.8 10^3/ul (3.5-10.8)
[2016-12-09 11:40] LABS: Add Diff/Slide Review? Slide Review Added; Comments Flag Yes
[2016-12-09 11:53] LABS: BUN/Creatinine Ratio 13.8 (8-20); C Reactive Protein 44.62 mg/L (< 5.00); Calcium 9.4 mg/dL (8.6-10.3); EGFR African American 154.4 (>60); EGFR Non-African American 120.1 (>60); Potassium 3.4 mmol/L (3.5-5.0)
--- NOTE | 2016-12-09 12:01 | PN ---
Subjective Date of Service: 12/09/16 Interval History: Patient is noted to be somewhat more lethargic today and weak with transfers. Occasional cough. No obvious aspiration with meals. He was incontinent of loose stools this am. Objective Active Medications: Acetaminophen (Tylenol Adult Liq*) 650 mg PO Q6H PRN PRN Reason: pain/fever Last Admin: 12/08/16 20:10 Dose: 650 mg Chlorpromazine HCl (Thorazine Tab*) 10 mg PO QAM [facility] Last Admin: 12/09/16 09:32 Dose: 10 mg Chlorpromazine HCl (Thorazine Tab*) 20 mg PO BEDTIME [facility] Last Admin: 12/08/16 20:03 Dose: 20 mg Divalproex Sodium (Depakote Sprinkle Cap*) 250 mg PO QAM [facility] Last Admin: 12/09/16 09:32 Dose: 250 mg Divalproex Sodium (Depakote Sprinkle Cap*) 500 mg PO 2100 [facility] Last Admin: 12/08/16 20:02 Dose: 500 mg Enoxaparin Sodium (Lovenox(*)) 40 mg SUBCUT Q24H [facility] Last Admin: 12/08/16 12:57 Dose: 40 mg Finasteride (Proscar Tab*) 5 mg PO DAILY [facility] Last Admin: 12/09/16 09:33 Dose: 5 mg Piperacillin Sod/Tazobactam (Sod 3.375 gm/ Sodium Chloride) 100 mls @ 25 mls/ hr IVPB Q8H [facility] Last Admin: 12/09/16 04:58 Dose: 25 mls/hr Lactase (Lactaid Fast Act (Nf)) 0 unit PO TID WITH MEALS [facility] Last Admin: 12/09/16 09:32 Dose: 9,000 unit Levothyroxine Sodium (Synthroid Tab*) 88 mcg PO DAILY@0600 [facility] Last Admin: 12/09/16 05:25 Dose: 88 mcg Lubiprostone (Amitiza (Nf)) 24 mcg PO BID [facility] Last Admin: 12/09/16 09:33 Dose: 24 mcg Magnesium Hydroxide (Milk Of Magnesia Liq*) 30 ml PO DAILY PRN PRN Reason: CONSTIPATION Metoclopramide HCl (Reglan Tab*) 10 mg PO TID [facility] Last Admin: 12/09/16 09:32 Dose: 10 mg Mineral Oil (Mineral Oil*) 5 ml PO DAILY [facility] Last Admin: 12/09/16 09:32 Dose: 5 ml Pharmacy Consult (Zosyn Per Pharmacy*) 1 note FOLLOW UP .ZOSYN PER PHARMACY [facility] Polyethylene Glycol/Electrolytes (Miralax*) 17 gm PO BID [facility] Last Admin: 12/09/16 09:33 Dose: 17 gm Potassium Chloride (Klor Con Er Tab*) 20 meq PO TID [facility] Last Admin: 12/09/16 09:33 Dose: 20 meq Risperidone (Risperdal*) 0.5 mg PO BEDTIME [facility] Last Admin: 12/08/16 20:02 Dose: 0.5 mg Sertraline HCl (Zoloft*) 200 mg PO DAILY [facility] Last Admin: 12/09/16 09:32 Dose: 200 mg Sodium Biphosphate/Sodium Phosphate (Fleet Enema*) 1 bottle VT Q4D PRN PRN Reason: CONSTIPATION Tamsulosin HCl (Flomax Cap*) 0.4 mg PO DAILY [facility] Last Admin: 12/09/16 09:33 Dose: 0.4 mg Vital Signs: Temp Pulse Resp BP Pulse Ox 98.0 F 86 20 148/82 96 12/09/16 03:14 12/09/16 07:28 12/09/16 07:28 12/09/16 07:28 12/09/16 08:45 Oxygen Devices in Use Now: None Appearance: Elderly gentleman with severe MR. Sleeping upon entering the room, but easily awakens. Non-verbal Respiratory: Symmetrical Chest Expansion and Respiratory Effort, Clear to Auscultation Cardiovascular: NL Sounds; No Murmurs; No JVD, RRR Abdominal: - - severely distended abd which is non-tender Extremities: No Edema Skin: No Rash or Ulcers Neurological: - - alert, nonverbal Result Diagrams: 12/09/16 11:32 12/09/16 11:32 Diagnostic Imaging: CXR - difficult to interpret due to patient positioning and severe abd distention. Poor lung volumes. Compared to CXR from yesterday at [place] there may be a subtle infiltrate in RUL Assess/Plan/Problems-Billing Assessment: This is a 76 yo male with severe MR and Alan's syndrome along with OCD, hypothyroidism, CHF and sz d/o who was transferred from [facility] with concern for increasing weakness and possible asp PNA - Patient Problems (1) Pneumonia Comment: Possible PNA, likely aspiration type Remains afebrile, no leukocytosis but elevated CRP and procalcitonin now with a slight cough Cont Zosyn (2) Weakness Comment: Reports of requiring 2 person assist at home over usual 1 person Concern for possible asp PNA Noted lg volume loose stool today too Screen for C.diff (3) MR (mental retardation), severe Comment: Non verbal at baseline (4) Alan's syndrome Comment: Severe colonic distention No change from usual baseline (5) Hypothyroid Comment: Last TSH from 6 weeks ago WNL Cont current dose of levothyroxine (6) Chronic heart failure Comment: No exacerbation No prior echo to determine type of HF (7) Seizure disorder Comment: Stable Continue depakote (8) Full code status (9) DVT prophylaxis Comment: SQ Lovenox Status and Disposition: Inpatient. Anticipate likely dc tomorrow
[2016-12-09] MEDS: Enoxaparin(*) 40 MG/0.4 ML SYR SUBCUT SCH (12:32)
[2016-12-09] MEDS: risperiDONE TAB* 1 MG PO SCH (21:28)
[2016-12-10] MEDS: ZOSYN 3.375 GM Q8H per EXTENDED INFUSION IVPB SCH ×2 (05:33)
[2016-12-10] MEDS: Levothyroxine TAB* 88 MCG TAB PO SCH (05:34)
[2016-12-10 06:25] LABS: Hematocrit 49 % (42-52); Hemoglobin 16.3 g/dl (14.0-18.0); Mean Corpuscular HGB Conc 33 g/dl (31-36); Mean Corpuscular Hemoglobin 30 pg (27-31); Mean Corpuscular Volume 91 fL (80-94); Mean Platelet Volume 9 um3 (7.4-10.4); Red Blood Count 5.39 10^6/ul (4.0-5.4); Red Cell Distribution Width 20 % (10.5-15); White Blood Count 8.3 10^3/ul (3.5-10.8)
[2016-12-10 06:42] LABS: BUN/Creatinine Ratio 16.7 (8-20); Calcium 8.5 mg/dL (8.6-10.3); EGFR African American 255.6 (>60); EGFR Non-African American 198.8 (>60); Potassium 3.1 mmol/L (3.5-5.0)
[2016-12-10 08:11] VITALS: BP 135/62
[2016-12-10] MEDS: LUBIPROSTONE 24 MCG PO SCH (08:48)
[2016-12-10] MEDS: Potassium Chlor TAB* 20 MEQ TAB.ER PO SCH (08:50)
[2016-12-10] MEDS: Divalproex Sprinkle CAP* 125 MG PO SCH (08:52)
[2016-12-10] MEDS: Tamsulosin CAP* 0.4 MG PO SCH (08:53)
[2016-12-10] MEDS: LACTASE ENZYME 9000 UNIT PO SCH ×2 (08:54→11:56)
[2016-12-10] MEDS: chlorproMAZINE TAB* 10 MG PO SCH (08:54)
[2016-12-10] MEDS: Metoclopramide TAB* 10 MG PO SCH (08:55)
[2016-12-10] MEDS: Finasteride TAB* 5 MG PO SCH (08:55)
[2016-12-10] MEDS: Sertraline* 100 MG TAB PO SCH (08:56)
[2016-12-10] MEDS: Polyethylene Glycol 3350* 17 GM PACKET PO SCH (08:58)
[2016-12-10] MEDS ORDERED: Potassium Chloride LIQUID* 20 MEQ PACKET PO SCH (09:00)
[2016-12-10] MEDS ORDERED: Influenza VAC *QUAD* 2017-18* 0.5 ML SYRINGE IM ONE (09:00)
[2016-12-10] MEDS: Enoxaparin(*) 40 MG/0.4 ML SYR SUBCUT SCH (11:55)
[2016-12-10] MEDS: Mineral Oil, LAXITIVE* 30 ML UDC PO SCH ×2 (11:56→11:59)
--- NOTE | 2016-12-10 17:21 | DS ---
CC: Dr. Agustín Reyes * DISCHARGE SUMMARY: DATE OF ADMISSION: 12/07/16 DATE OF DISCHARGE: 12/10/16 PRIMARY CARE PROVIDER: Dr. Agustín Reyes. DISCHARGING PROVIDER: EMMA Holman. SUPERVISING PHYSICIAN: Padilla Cheung MD * (DICTATED BY EMMA HOLMAN) PRIMARY DISCHARGE DIAGNOSIS: Probable aspiration pneumonia with complaints of weakness. SECONDARY DISCHARGE DIAGNOSES: 1. Severe developmental disability, nonverbal at baseline. 2. 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 3. Hypothyroidism. 4. Chronic heart failure without acute exacerbation. 5. Seizure disorder. DISCHARGE MEDICATIONS: 1. Augmentin 875/125 one tablet p.o. twice daily x7 days. 2. Depakote 250 mg in the morning, 500 in the evening. 3. Doxycycline 20 mg p.o. twice daily. 4. Finasteride 5 mg p.o. daily. 5. Lactic acid cream 12% solution apply topically 4 times daily as needed. 6. Levothyroxine 88 mcg p.o. daily. 7. Amitiza 24 mcg p.o. twice daily. 8. Milk of magnesia 30 mL p.o. daily. 9. Reglan 10 mg p.o. 3 times daily. 10. Mineral oil 5 mL p.o. daily. 11. MiraLAX 17 g p.o. twice daily. 12. Potassium chloride 20 mEq p.o. t.i.d. 13. Zoloft 200 mg p.o. daily. 14. Fleet enema one bottle per rectum q.4 days as needed. 15. Flomax 0.4 mg p.o. daily. 16. Thorazine 10 mg p.o. daily and 20 mg at bedtime. 17. Risperdal 0.5 mg p.o. at bedtime. Medication Changes: Augmentin x7 days. HOSPITAL IMAGING: Chest x-ray is difficult to interpret due to the patient's ability to cooperate and positioning, but he has low lung volumes, possible vascular congestion. On personal review, there is a possible small infiltrate in the right upper lobe. There is also severe colon dilatation measuring 9.3 cm in maximum diameter. HOSPITAL COURSE: This is a 76-year-old gentleman with severe developmental disability who is nonverbal at baseline and lives in an [facility] facility in the [facility] who was evaluated at [facility] for complaints of weakness. He does have a history of aspiration pneumonia and resident was concerned that perhaps he had aspirated again. His labs, vitals, and chest x-ray at [facility] were all benign. Hospital department was concerned about having him admitted at [facility] due to a history of prior decompensation there and he was subsequently transferred to our facility for further treatment. Repeat labs remained benign including no leukocytosis. He remained afebrile. He had an occasional dry cough and was mildly lethargic. His CRP was moderately elevated and somewhat elevated procalcitonin to 0.8. He was empirically treated for a possible aspiration pneumonia with Zosyn. His urinalysis was unremarkable. He did have multiple episodes of loose stools, but this is his baseline due to his Alan syndrome. DISPOSITION AND FOLLOWUP PLAN: At the time of discharge, the patient is able to stand and pivot with one assist, which is his baseline. I recommend 7 days of Augmentin to treat for possible aspiration pneumonia. Follow up with primary care provider. No additional changes made to his home medications. EMMA HOLMAN [id number]/[facility] #: [id number] TAMIKO
== END 2016-12-10 13:45 | disposition home or self-care (01) | DRG 178 ==
LOC: MED 18:55
PROVIDERS: ADMIT Hospitalist; ATTEND Hospitalist
DX: J69.0 Pneumonitis due to inhalation of food and vomit (principal); K56.69 Other intestinal obstruction; F72 Severe intellectual disabilities; I50.9 Heart failure, unspecified; G40.909 Epilepsy, unspecified, not intractable, without status epilepticus; K63.89 Other specified diseases of intestine; E03.9 Hypothyroidism, unspecified; Z87.01 Personal history of pneumonia (recurrent); F42.9 Obsessive-compulsive disorder, unspecified
CPT/HCPCS: 36415; 71020; 80048; 81003; 83630; 84145; 85025; 86140; 87045; 87046; 87077; 87493; 87899; 90686; 94760; A9270-GY; J1650; J2543